=== PATIENT | male | born 1990 | race Caucasian/White ===

== ENCOUNTER 2016-06-18 11:31 | Emergency (ER) | payer OTHER ==
[2016-06-18] MEDS ORDERED: HYDROcod/ACETAM 5/325 MG TABLET PO STA (14:34)
[2016-06-18] MEDS ORDERED: HYDROcod/ACETAM 5/325 MG TABLET ONE (14:37)
== END 2016-06-18 14:48 | disposition home or self-care (01) ==
DX: M67.441 Ganglion, right hand (principal); M79.644 Pain in right finger(s); Z98.890 Other specified postprocedural states; F17.200 Nicotine dependence, unspecified, uncomplicated
CPT/HCPCS: 99283; A9270